=== PATIENT | female | born 1990 | race Caucasian/White ===

== ENCOUNTER 2016-08-24 10:15 | Emergency (ER) | payer OTHER ==
[~2016-08-24] VITALS: Ht 157.5 cm; Wt 112.4 kg
[~2016-08-24 10:15] MED LIST: CEPHALEXIN500 MG PO; ENDOCET 5-3251 EACH PO; ESCITALOPRAM OX20 MG PO; HYDRODIURIL,O12.5 M2 PO; K-DUR20 MEQ PO; LEXAPRO20 MG PO; Lexapro PO; MIRENA52 MG IY; MOTRIN800 MG PO; Motrin PO; PRENATAL VITAM1 EAC3 PO; Percocet 5/325,Endoc PO; ZITHROMAX500 MG PO
[2016-08-24 11:06] LABS: HEMATOCRIT 45.3 % (36.0-46.0); MCH 27.7 PG (29.0-34.0); MCHC 33.3 G/DL (30.0-36.0); MCV 83.1 FL (83-99); MEAN PLAT.VOLUME 11.5 uM^3 (9.5-12.4); PLATELET COUNT 257 K/uL (156-360); RBC DIS.WIDTH-CV 12.8 % (11.8-14.6); RBC DIS.WIDTH-SD 38.3 % (39-53); RED BLOOD COUNT 5.45 M/uL (3.80-5.20)
[2016-08-24 11:23] LABS: CHLORIDE 106 mEq/L (99-109); POTASSIUM 3.8 mEq/L (3.7-5.4); SODIUM 138 mEq/L (136-147)
[2016-08-24 11:25] LABS: GLUCOSE 110 mg/dL (70-99)
[2016-08-24 11:26] LABS: ANION GAP 11 MEQ/L (2-14)
[2016-08-24 11:27] LABS: TOTAL BILIRUBIN 0.5 mg/dL (0.0-1.0)
[2016-08-24 11:28] LABS: ALKALINE PHOSPHATASE 121 IU/L (3-129)
[2016-08-24 11:29] LABS: GFR ESTIMATE (CALCULATED) > 59 mL/min/
[2016-08-24 11:30] LABS: UREA NITROGEN (BUN) 9 mg/dL (9-23)
[2016-08-24 11:42] LABS: QUANTITATIVE HCG < 4.0 MIU/ML
[2016-08-24 12:00] LABS: LIPASE 14 U/L (1.0-51.0)
[2016-08-24 12:02] LABS: ADD MIUA? YES; BILIRUBIN NEGATIVE; BLOOD SMALL; COLOR YELLOW ((YELLOW)); GLUCOSE (STRIP) NEGATIVE; KETONES NEGATIVE; LEUKOCYTES SMALL; NITRITE NEGATIVE; PROTEIN (STRIP) 30; SPECIFIC GRAVITY 1.025 (1.000-1.030); UROBILINOGEN 0.2 MG/DL (0.2-1.0)
[2016-08-24 12:11] LABS: INFLUENZA A VIRAL ANTIGEN NEGATIVE; INFLUENZA B VIRAL ANTIGEN NEGATIVE
[2016-08-24 12:16] LABS: BACTERIA RARE /HPF; EPITHELIAL CELLS 1+ /HPF; MUCUS 1+ /LPF; RED BLOOD CELLS 0-5 /HPF (0-5); UCUL ADDED? NO
[2016-08-24] MEDS ORDERED: ZOFRAN4 MG PO (12:50)
[2016-08-24 13:04] VITALS: BP 114/70
== END 2016-08-24 13:09 | disposition home or self-care (01) ==
LOC: EME 10:15
PROVIDERS: Physician Assistant
DX: R11.2 Nausea with vomiting, unspecified (principal); R19.7 Diarrhea, unspecified; R09.81 Nasal congestion
CPT/HCPCS: 80053; 81003; 83690; 84702; 85027; 87502; 99281; 99284

== ENCOUNTER 2017-04-04 18:41 | Emergency (ER) | payer OTHER ==
[~2017-04-04] VITALS: Ht 157.5 cm; Wt 114.3 kg
[~2017-04-04 18:41] MED LIST changes: +ZOFRAN4 MG PO
[2017-04-04 19:16] LABS: MCH 29.3 PG (29.0-34.0); MCHC 34.5 G/DL (30.0-36.0); MCV 84.9 FL (83-99); MEAN PLAT.VOLUME 11.6 uM^3 (9.5-12.4); PLATELET COUNT 210 K/uL (156-360); RBC DIS.WIDTH-CV 13.2 % (11.8-14.6); RBC DIS.WIDTH-SD 40.9 % (39-53); RED BLOOD COUNT 4.71 M/uL (3.80-5.20)
[2017-04-04 19:31] LABS: ADD MIUA? YES; BILIRUBIN NEGATIVE; BLOOD SMALL; COLOR YELLOW ((YELLOW)); GLUCOSE (STRIP) NEGATIVE; KETONES 5; LEUKOCYTES LARGE; NITRITE NEGATIVE; PROTEIN (STRIP) 30; SPECIFIC GRAVITY 1.032 (1.000-1.030); UROBILINOGEN 0.2 MG/DL (0.2-1.0)
[2017-04-04 19:35] LABS: CHLORIDE 107 mEq/L (99-109); POTASSIUM 3.5 mEq/L (3.7-5.4); SODIUM 139 mEq/L (136-147)
[2017-04-04 19:38] LABS: GLUCOSE 85 mg/dL (70-99)
[2017-04-04 19:39] LABS: ANION GAP 11 MEQ/L (2-14)
[2017-04-04 19:40] LABS: TOTAL BILIRUBIN 0.4 mg/dL (0.0-1.0)
[2017-04-04 19:41] LABS: ALKALINE PHOSPHATASE 95 IU/L (3-129); GFR ESTIMATE (CALCULATED) > 59 mL/min/
[2017-04-04 19:42] LABS: UREA NITROGEN (BUN) 7 mg/dL (9-23)
[2017-04-04 19:53] LABS: EPITHELIAL CELLS 3+ /HPF; WHITE BLOOD CELLS 30-40 /HPF (0-5)
[2017-04-04 19:54] LABS: BACTERIA 1+ /HPF; CASTS PRESENT /LPF; CRYSTALS PRESENT; MUCUS 1+ /LPF; UCUL ADDED? YES
[2017-04-04 19:56] LABS: CALCIUM OXALATE CRYSTALS 1+ /HPF; HYALINE CASTS RARE /LPF
[2017-04-04 19:59] LABS: QUANTITATIVE HCG 82687.7 MIU/ML
[2017-04-04] MEDS ORDERED: KEFLEX500 MG PO (20:56)
[2017-04-04 21:06] VITALS: BP 144/86
== END 2017-04-04 21:12 | disposition home or self-care (01) ==
LOC: EME 18:41
DX: O23.42 Unspecified infection of urinary tract in pregnancy, second trimester (principal); Z3A.14 14 weeks gestation of pregnancy; O16.2 Unspecified maternal hypertension, second trimester; I11.0 Hypertensive heart disease with heart failure; I50.9 Heart failure, unspecified; O99.342 Other mental disorders complicating pregnancy, second trimester; F41.9 Anxiety disorder, unspecified; F32.9 Major depressive disorder, single episode, unspecified; O99.612 Diseases of the digestive system complicating pregnancy, second trimester; K21.9 Gastro-esophageal reflux disease without esophagitis
CPT/HCPCS: 80053; 81003; 84702; 85027; 87077; 87086; 87186; 99281; 99284

== ENCOUNTER 2017-04-12 20:13 | Emergency (ER) | payer OTHER ==
[~2017-04-12] VITALS: Ht 157.5 cm; Wt 115.4 kg
[~2017-04-12 20:13] MED LIST changes: +KEFLEX500 MG PO
[2017-04-12 21:29] LABS: HEMATOCRIT 35.3 % (36.0-46.0); MCH 29.5 PG (29.0-34.0); MCHC 34.6 G/DL (30.0-36.0); MCV 85.5 FL (83-99); MEAN PLAT.VOLUME 11.9 uM^3 (9.5-12.4); PLATELET COUNT 196 K/uL (156-360); RBC DIS.WIDTH-CV 13.2 % (11.8-14.6); RBC DIS.WIDTH-SD 41.1 % (39-53); RED BLOOD COUNT 4.13 M/uL (3.80-5.20); WHITE BLOOD COUNT 9.7 K/uL (4.1-10.2)
[2017-04-12 21:41] LABS: CHLORIDE 108 mEq/L (99-109); POTASSIUM 3.6 mEq/L (3.7-5.4); SODIUM 137 mEq/L (136-147)
[2017-04-12 21:43] LABS: GLUCOSE 110 mg/dL (70-99)
[2017-04-12 21:44] LABS: ANION GAP 9 MEQ/L (2-14)
[2017-04-12 21:47] LABS: GFR ESTIMATE (CALCULATED) > 59 mL/min/
[2017-04-12 21:48] LABS: UREA NITROGEN (BUN) 8 mg/dL (9-23)
[2017-04-12 23:41] LABS: ADD MIUA? NO; BILIRUBIN NEGATIVE; BLOOD NEGATIVE; COLOR YELLOW ((YELLOW)); GLUCOSE (STRIP) NEGATIVE; KETONES 5; LEUKOCYTES NEGATIVE; NITRITE NEGATIVE; PROTEIN (STRIP) NEGATIVE; SPECIFIC GRAVITY 1.038 (1.000-1.030); UCUL ADDED? NO
[2017-04-13 00:05] VITALS: BP 130/77
== END 2017-04-13 00:35 | disposition home or self-care (01) ==
LOC: EXP 20:13 → EME 20:13 → EXP 04-13 00:35
PROVIDERS: Physician Assistant
DX: O99.89 Other specified diseases and conditions complicating pregnancy, childbirth and the puerperium (principal); R55 Syncope and collapse; Z3A.16 16 weeks gestation of pregnancy
CPT/HCPCS: 80048; 81003; 84702; 85027; 93005; 99281; 99284

== ENCOUNTER 2017-06-22 17:32 | Outpatient (CLI) | payer OTHER ==
[2017-06-22 18:07] VITALS: BP 119/80
[2017-06-22 19:28] VITALS: BP 117/62
[2017-06-22 21:04] LABS: APPEARANCE CLEAR ((CLEAR)); BILIRUBIN NEGATIVE; BLOOD NEGATIVE; COLOR STRAW ((YELLOW)); GLUCOSE (STRIP) NEGATIVE; KETONES NEGATIVE; LEUKOCYTES NEGATIVE; NITRITE NEGATIVE; PROTEIN (STRIP) NEGATIVE; SPECIFIC GRAVITY 1.002 (1.000-1.030); UROBILINOGEN 0.2 MG/DL (0.2-1.0)
== END 2017-06-22 20:32 | disposition home or self-care (01) ==
LOC: LDRP-OP 17:32 → 2WEST 17:34
PROVIDERS: Obstetrics & Gynecology
DX: O99.89 Other specified diseases and conditions complicating pregnancy, childbirth and the puerperium (principal); R11.2 Nausea with vomiting, unspecified; M54.5 Low back pain; O10.912 Unspecified pre-existing hypertension complicating pregnancy, second trimester; Z3A.25 25 weeks gestation of pregnancy
CPT/HCPCS: 59025; 81003; 87086; G0378; J7120

== ENCOUNTER 2017-08-02 15:55 | Emergency (ER) | payer OTHER ==
[~2017-08-02] VITALS: Ht 157.5 cm; Wt 118.4 kg
[2017-08-02] MEDS ORDERED: PERCOCET 5/31 TABLET PO (18:59)
[2017-08-02 19:13] VITALS: BP 126/91
== END 2017-08-02 19:15 | disposition home or self-care (01) ==
LOC: EME 15:55
DX: O99.89 Other specified diseases and conditions complicating pregnancy, childbirth and the puerperium (principal); K02.9 Dental caries, unspecified; Z98.818 Other dental procedure status
CPT/HCPCS: 99281; 99283

== ENCOUNTER 2017-08-18 21:16 | Outpatient (CLI) | payer OTHER ==
[~2017-08-18 21:16] MED LIST changes: +PERCOCET 5/31 TABLET PO
[2017-08-18 21:35] VITALS: BP 131/70
[2017-08-18 22:38] LABS: SOURCE SWAB
[2017-08-18 22:44] LABS: APPEARANCE CLEAR ((CLEAR)); BILIRUBIN NEGATIVE; BLOOD NEGATIVE; COLOR YELLOW ((YELLOW)); GLUCOSE (STRIP) 150; KETONES 20; LEUKOCYTES NEGATIVE; NITRITE NEGATIVE; PROTEIN (STRIP) NEGATIVE; SPECIFIC GRAVITY 1.019 (1.000-1.030); UCUL ADDED? NO
[2017-08-18 22:50] VITALS: BP 122/67
[2017-08-19 06:28] LABS: CANDIDA DNA PROBE NEGATIVE; GARDNERELLA DNA PROBE NEGATIVE; TRICHOMONAS DNA PROBE NEGATIVE
[2017-08-19] MEDS ORDERED: PRENATAL TABLE1 EAC3 PO (13:46)
[2017-08-19] MEDS ORDERED: IRON325 M1 PO (13:47)
[2017-08-19] MEDS ORDERED: PROCARDIA20 MG PO (15:40)
== END 2017-08-19 00:40 | disposition home or self-care (01) ==
LOC: LDRP-OP → 2WEST 21:17 → LDRP-OP 11-02 21:15
PROVIDERS: Midwife; Obstetrics & Gynecology Obstetrics
DX: O47.03 False labor before 37 completed weeks of gestation, third trimester (principal); O99.213 Obesity complicating pregnancy, third trimester; Z68.42 Body mass index [BMI] 45.0-49.9, adult; O99.343 Other mental disorders complicating pregnancy, third trimester; F41.9 Anxiety disorder, unspecified; F42.9 Obsessive-compulsive disorder, unspecified; Z3A.33 33 weeks gestation of pregnancy; Z90.49 Acquired absence of other specified parts of digestive tract
CPT/HCPCS: 59025; 81003; 82731; 87480; 87491; 87510; 87591; 87660; G0378; J0702

== ENCOUNTER 2017-08-19 12:20 | Outpatient (CLI) | payer OTHER ==
[~2017-08-19] VITALS: Ht 160 cm; Wt 117.7 kg
[2017-08-19 12:53] VITALS: BP 140/78
[2017-08-19] MEDS ORDERED: PRENATAL TABLE1 EAC3 PO (13:46)
[2017-08-19] MEDS ORDERED: IRON325 M1 PO (13:47)
[2017-08-19 14:46] VITALS: BP 117/70
[2017-08-19] MEDS ORDERED: PROCARDIA20 MG PO (15:40)
== END 2017-08-19 16:40 | disposition home or self-care (01) ==
LOC: LDRP-OP 12:20 → 2WEST 12:21 → LDRP-OP 11-02 00:57
DX: O47.03 False labor before 37 completed weeks of gestation, third trimester (principal); Z90.49 Acquired absence of other specified parts of digestive tract; Z3A.33 33 weeks gestation of pregnancy
CPT/HCPCS: 59025; G0378; J7120

== ENCOUNTER 2017-08-19 23:30 | Outpatient (CLI) | payer OTHER ==
[~2017-08-19 23:30] MED LIST changes: +IRON325 M1 PO; +PRENATAL TABLE1 EAC3 PO; +PROCARDIA20 MG PO
[2017-08-19 23:39] VITALS: BP 132/80
== END 2017-08-20 00:07 | disposition home or self-care (01) ==
LOC: LDRP-OP 23:30 → 2WEST 23:31 → LDRP-OP 08-20 23:08
DX: O47.03 False labor before 37 completed weeks of gestation, third trimester (principal); Z90.49 Acquired absence of other specified parts of digestive tract; Z3A.33 33 weeks gestation of pregnancy
CPT/HCPCS: 59025; G0378; J0702

== ENCOUNTER 2017-09-09 08:59 | Outpatient (CLI) | payer OTHER ==
[2017-09-09 09:16] VITALS: BP 136/90
[2017-09-09 09:27] VITALS: BP 134/96
[2017-09-09 10:39] VITALS: BP 117/64
[2017-09-09 11:38] LABS: BASOPHIL (%) 0.4 % (0-1); EOSINOPHIL (%) 0.9 % (0-5); EOSINOPHIL COUNT 0.1 K/uL (0-0.3); HEMATOCRIT 32.5 % (36.0-46.0); HEMOGLOBIN 10.7 G/DL (11.9-15.5); IMMATURE GRANULOCYTE (%) 0.7 % (0.0-0.7); LYMPHOCYTE (%) 16.4 % (15-42); LYMPHOCYTE COUNT 1.2 K/uL (1.0-2.8); MCH 26.2 PG (29.0-34.0); MCHC 32.9 G/DL (30.0-36.0); MCV 79.5 FL (83-99); MONOCYTE (%) 5.1 % (3-12); MONOCYTE COUNT 0.4 K/uL (0-0.8); NEUTROPHIL (%) 76.5 % (45-76); NEUTROPHIL COUNT 5.4 K/uL (1.8-6.4); PLATELET COUNT 203 K/uL (156-360); RBC DIS.WIDTH-CV 14.1 % (11.8-14.6); RBC DIS.WIDTH-SD 41.1 % (39-53); RED BLOOD COUNT 4.09 M/uL (3.80-5.20)
[2017-09-09 12:00] LABS: ALBUMIN 3.2 G/DL (3.2-4.8); ALKALINE PHOSPHATASE 220 IU/L (3-129); ALT (GPT) 34 IU/L (3-49); AST (GOT) 19 IU/L (2-34); CHLORIDE 107 MEQ/L (99-109); CREATININE 0.4 MG/DL (0.6-1.3); GFR ESTIMATE (CALCULATED) > 59 mL/min/; GLUCOSE 79 mg/dL (70-99); POTASSIUM 3.8 MEQ/L (3.7-5.4); SODIUM 138 MEQ/L (136-147); TOTAL BILIRUBIN 0.7 MG/DL (0.0-1.0); TOTAL PROTEIN 5.8 G/DL (6.4-8.3); UREA NITROGEN (BUN) 6 mg/dL (9-23)
[2017-09-09 12:16] LABS: UR CREATININE CONCENTRATION 162.7 MG/DL
== END 2017-09-09 13:11 | disposition home or self-care (01) ==
LOC: LDRP-OP 08:59 → 2WEST 09:00 → LDRP-OP 11-02 00:16
PROVIDERS: Advanced Practice Midwife
DX: O26.893 Other specified pregnancy related conditions, third trimester (principal); R10.9 Unspecified abdominal pain; O10.913 Unspecified pre-existing hypertension complicating pregnancy, third trimester; Z3A.36 36 weeks gestation of pregnancy
CPT/HCPCS: 59025; 80053; 82570; 84156; 85025; G0378

== ENCOUNTER 2017-09-13 04:47 | Inpatient (IN) | payer OTHER ==
[2017-09-13] VITALS (31 sets, daily range): BP systolic 94–154; BP diastolic 52–92
[~2017-09-13] VITALS: Ht 157.5 cm; Wt 117.5 kg
[2017-09-13 06:04] LABS: BASOPHIL (%) 0.3 % (0-1); EOSINOPHIL (%) 1.6 % (0-5); EOSINOPHIL COUNT 0.1 K/uL (0-0.3); HEMATOCRIT 31.9 % (36.0-46.0); HEMOGLOBIN 10.5 G/DL (11.9-15.5); IMMATURE GRANULOCYTE (%) 0.5 % (0.0-0.7); LYMPHOCYTE (%) 21.9 % (15-42); LYMPHOCYTE COUNT 1.4 K/uL (1.0-2.8); MCH 26.3 PG (29.0-34.0); MCHC 32.9 G/DL (30.0-36.0); MCV 79.9 FL (83-99); MONOCYTE (%) 6.6 % (3-12); MONOCYTE COUNT 0.4 K/uL (0-0.8); NEUTROPHIL (%) 69.1 % (45-76); NEUTROPHIL COUNT 4.4 K/uL (1.8-6.4); PLATELET COUNT 206 K/uL (156-360); RBC DIS.WIDTH-CV 14.3 % (11.8-14.6); RBC DIS.WIDTH-SD 41.5 % (39-53); RED BLOOD COUNT 3.99 M/uL (3.80-5.20); WHITE BLOOD COUNT 6.3 K/uL (4.1-10.2)
[2017-09-13 06:08] LABS: AMPHETAMINE NEGATIVE (500 ng/mL); BARBITURATES NEGATIVE (200 ng/mL); BENZODIAZEPINES NEGATIVE (150 ng/mL); BUPRENORPHINE NEGATIVE (10 ng/mL); COCAINE NEGATIVE (150 ng/mL); METHADONE NEGATIVE (200 ng/mL); METHAMPHETAMINE NEGATIVE (500 ng/mL); OPIATES (MORPHINE) NEGATIVE (100 ng/mL); OXYCODONE NEGATIVE (100 ng/mL); PHENCYCLIDINE NEGATIVE (25 ng/mL); PROPOXYPHENE NEGATIVE (300 ng/mL); THC CANNABINOIDS NEGATIVE (50 ng/mL); TRICYCLIC ANTIDEPRESSANTS NEGATIVE (300 ng/mL)
[2017-09-13 09:48] LABS: ALBUMIN 2.9 G/DL (3.2-4.8); ALKALINE PHOSPHATASE 202 IU/L (3-129); ALT (GPT) 60 IU/L (3-49); CHLORIDE 106 MEQ/L (99-109); CREATININE 0.5 MG/DL (0.6-1.3); GFR ESTIMATE (CALCULATED) > 59 mL/min/; GLUCOSE 97 mg/dL (70-99); POTASSIUM 3.7 MEQ/L (3.7-5.4); SODIUM 138 MEQ/L (136-147); TOTAL BILIRUBIN 0.6 MG/DL (0.0-1.0); TOTAL PROTEIN 5.9 G/DL (6.4-8.3); UREA NITROGEN (BUN) 8 mg/dL (9-23)
[2017-09-13 10:22] LABS: AST (GOT) 41 IU/L (2-34)
[2017-09-13 10:59] LABS: UR CREATININE CONCENTRATION 89.7 MG/DL
[2017-09-13] MEDS ORDERED: MOTRIN800 MG PO (19:11)
[2017-09-14 06:52] LABS: BASOPHIL (%) 0.3 % (0-1); EOSINOPHIL (%) 1.5 % (0-5); EOSINOPHIL COUNT 0.1 K/uL (0-0.3); HEMATOCRIT 32.6 % (36.0-46.0); HEMOGLOBIN 10.7 G/DL (11.9-15.5); IMMATURE GRANULOCYTE (%) 0.4 % (0.0-0.7); LYMPHOCYTE (%) 19.3 % (15-42); LYMPHOCYTE COUNT 1.5 K/uL (1.0-2.8); MCH 26.3 PG (29.0-34.0); MCHC 32.8 G/DL (30.0-36.0); MCV 80.1 FL (83-99); MONOCYTE (%) 7.2 % (3-12); MONOCYTE COUNT 0.6 K/uL (0-0.8); NEUTROPHIL (%) 71.3 % (45-76); NEUTROPHIL COUNT 5.6 K/uL (1.8-6.4); PLATELET COUNT 205 K/uL (156-360); RBC DIS.WIDTH-CV 14.6 % (11.8-14.6); RBC DIS.WIDTH-SD 42.4 % (39-53); RED BLOOD COUNT 4.07 M/uL (3.80-5.20); WHITE BLOOD COUNT 7.9 K/uL (4.1-10.2)
[2017-09-14 07:14] LABS: ALBUMIN 2.9 G/DL (3.2-4.8); ALKALINE PHOSPHATASE 217 IU/L (3-129); ALT (GPT) 71 IU/L (3-49); AST (GOT) 47 IU/L (2-34); CHLORIDE 106 MEQ/L (99-109); CREATININE 0.5 MG/DL (0.6-1.3); GFR ESTIMATE (CALCULATED) > 59 mL/min/; GLUCOSE 85 mg/dL (70-99); POTASSIUM 3.9 MEQ/L (3.7-5.4); SODIUM 138 MEQ/L (136-147); UREA NITROGEN (BUN) 8 mg/dL (9-23)
[2017-09-14 07:16] LABS: TOTAL BILIRUBIN 0.8 MG/DL (0.0-1.0)
[2017-09-14 07:49] VITALS: BP 135/89
[2017-09-14 15:27] VITALS: BP 125/78
[2017-09-14 18:52] VITALS: BP 117/77
[2017-09-14 23:30] VITALS: BP 123/72
[2017-09-15 06:47] LABS: ALBUMIN 2.7 G/DL (3.2-4.8); ALKALINE PHOSPHATASE 199 IU/L (3-129); ALT (GPT) 68 IU/L (3-49); AST (GOT) 41 IU/L (2-34); DIRECT BILIRUBIN 0.1 mg/dL (0.0-0.3); TOTAL PROTEIN 4.8 G/DL (6.4-8.3)
[2017-09-15 06:52] LABS: TOTAL BILIRUBIN 0.4 MG/DL (0.0-1.0)
[2017-09-15] MEDS ORDERED: LASIX20 MG PO (13:32)
[2017-09-15] MEDS ORDERED: PERCOCET 5/31 TABLET PO (13:34)
== END 2017-09-15 17:10 | disposition home or self-care (01) | DRG 774 ==
LOC: LDRP-OP 04:47 → 2WEST 04:48 → LDRP-OP 11-02 13:14
PROVIDERS: Advanced Practice Midwife; Nurse Practitioner; Obstetrics & Gynecology
PROC: 10E0XZZ Delivery of Products of Conception, External Approach (ICD-10-PCS; principal; 2017-09-13)
PROC: 00HU33Z Insertion of Infusion Device into Spinal Canal, Percutaneous Approach (ICD-10-PCS; principal; 2017-09-13)
PROC: 3E033VJ Introduction of Other Hormone into Peripheral Vein, Percutaneous Approach (ICD-10-PCS; principal; 2017-09-13)
PROC: 3E0R3BZ Introduction of Anesthetic Agent into Spinal Canal, Percutaneous Approach (ICD-10-PCS; principal; 2017-09-13)
DX: O42.02 Full-term premature rupture of membranes, onset of labor within 24 hours of rupture (principal); O10.92 Unspecified pre-existing hypertension complicating childbirth; O99.214 Obesity complicating childbirth; E66.01 Morbid (severe) obesity due to excess calories; Z68.42 Body mass index [BMI] 45.0-49.9, adult; Z90.49 Acquired absence of other specified parts of digestive tract; O99.89 Other specified diseases and conditions complicating pregnancy, childbirth and the puerperium; R79.89 Other specified abnormal findings of blood chemistry; O12.04 Gestational edema, complicating childbirth; Z3A.37 37 weeks gestation of pregnancy; Z37.0 Single live birth
CPT/HCPCS: 80053; 80076; 82570; 84156; 85025; C1755; J2405; J3010; J7120